=== PATIENT | female | born 1970 | race Caucasian/White ===

== ENCOUNTER 2020-10-02 07:24 | Outpatient (CLI) | payer OTHER ==
[2020-10-02 08:35] LABS: ALBUMIN 4.4 g/dL (3.2-5.5); ALBUMIN/GLOBULIN RATIO 1.3 (1.0-2.2); ALKALINE PHOSPHATASE 78 IU/L (42-121); ALT ALANINE AMINOTRANSFERASE 25 IU/L (10-60); AST ASPARTATE AMINOTRANSFERASE 20 IU/L (10-42); BILIRUBIN,TOTAL 0.9 mg/dL (0.2-1.0); BUN - BLOOD UREA NITROGEN 18 mg/dL (6-20); CALCIUM 9.2 mg/dL (8.5-10.3); CARBON DIOXIDE - CO2 25 mmol/L (21-32); CHLORIDE 105 mmol/L (101-111); CHOL/HDL RATIO 3.4 (<4.4); CHOLESTEROL 269 mg/dL; CREATININE 0.9 mg/dL (0.4-1.0); GLUCOSE 90 mg/dL (70-100); HDL CHOLESTEROL 78 mg/dL; LDL CHOLESTEROL,CALCULATED 171 mg/dL; LDL/HDL RATIO 2.2 (<4.4); SODIUM 140 mmol/L (135-145); TOTAL PROTEIN 7.8 g/dL (6.7-8.2); VLDL CHOLESTEROL 20 mg/dL
[2020-10-02 10:42] LABS: HEMOGLOBIN A1c% 5.4 % (4.27-6.07)
== END 2020-10-02 07:25 | disposition home or self-care (01) ==
LOC: LAB 07:24
PROVIDERS: ATTEND Obstetrics & Gynecology
DX: Z00.00 Encounter for general adult medical examination without abnormal findings (principal); E55.9 Vitamin D deficiency, unspecified; Z13.220 Encounter for screening for lipoid disorders; Z13.1 Encounter for screening for diabetes mellitus
CPT/HCPCS: 36415; 80053; 80061; 82306; 83036; 83721; 84443

== ENCOUNTER 2020-10-10 11:46 | Day surgery (SDC) | payer OTHER ==
[2020-10-10] MEDS ORDERED: LACTATED RINGERS 1,000 ML IV ONE ×2 (12:25→15:27)
[2020-10-10] MEDS ORDERED: MIDAZOLAM 2 MG/2 ML VIAL IVP ONE (14:45)
[2020-10-10] MEDS ORDERED: fentaNYL 250 MCG/5 ML VIAL IVP ONE (14:45)
[2020-10-10 15:49] VITALS: BP 113/89
== END 2020-10-10 11:47 | disposition home or self-care (01) ==
LOC: SDS 11:46
PROVIDERS: ATTEND Surgery
DX: Z12.11 Encounter for screening for malignant neoplasm of colon (principal)
CPT/HCPCS: 45378; J3010; J7120

== ENCOUNTER 2020-10-28 08:19 | Outpatient (CLI) | payer OTHER ==
--- NOTE | 2020-11-06 09:38 | Mammography Report ---
BILATERAL DIGITAL SCREENING MAMMOGRAM 3D/2D: 10/28/2020 CLINICAL: Routine screening. No prior exams were available for comparison. The tissue of both breasts is heterogeneously dense. T his may lower the sensitivity of mammography. There is an oval low density mass with an obscured and circumscribed margin in the left breast at 1 o 'clock middle depth. No other significant masses, calcifications, or other findings are seen in either breast. IMPRESSION: INCOMPLETE: NEEDS ADDITIONAL IMAGING EVALUATION The oval low density mass in the left breast is indeterminate. Mediolateral and spot compression vie ws as well as additional views with possible ultrasound are recommended. This exam was interpreted at Station ID: [id number]. NOTE: For mammograms, a report in lay terms will be sent to the patient. Approximately 15% of breast malignancies will not be visualized mammographically. In the management of a palpable breast mass, a negative mammogram must not discourage biopsy of a clinically suspicious lesion. Electronically Signed By: Kash Rosas M.D. ddp/penrad:11/05/2020 11:17:12 ACR BI-RADS Category 0: Incomplete 3340F PARENCHYMAL PATTERN: (D) - The breast(s) demonstrate(s) heterogeneously dense fibroglandular parenchy ma. BI-RADS CATEGORY: (0) - 0 Mammo and [place] [id number] Immediate follow-up LATERALITY: (B)
== END 2020-10-28 08:20 | disposition home or self-care (01) ==
LOC: DI.N 08:19
PROVIDERS: ATTEND Obstetrics & Gynecology
DX: Z12.31 Encounter for screening mammogram for malignant neoplasm of breast (principal); R92.8 Other abnormal and inconclusive findings on diagnostic imaging of breast
CPT/HCPCS: 77067

== ENCOUNTER 2020-12-26 08:00 | Outpatient (CLI) | payer OTHER ==
--- NOTE | 2021-01-23 08:54 | XRAY Report ---
PROCEDURE: Knee 4 View BILAT INDICATIONS: BILAT KNEE PAIN TECHNIQUE: 3 views of the left and right knee(s) were acquired. COMPARISON: None. FINDINGS: On the right, no fracture. Scattered subchondral sclerosis and spurring. Mild narrowing of the media l joint space. Edfun-mg-bnzigkeg joint effusion. On the left: Lateral tibial plateau fracture with depressed appearance. This finding technically age indeterminate and could be subacute or chronic and recommend clinical correlation. No priors availabl e. Scattered subchondral sclerosis and spurring. Small joint effusion. IMPRESSION: Left lateral tibial plateau fracture with slight depression and diastasis of the articul ar surface, although radiographically this is age indeterminate possibly subacute. Please correlate c linically to determine acuity, given the absence of any prior comparison studies. If clinically requi red, further evaluation with MRI or CT could be performed. Chronic background mild bilateral knee joint degeneration and joint effusions, right larger than left Reviewed by: Edson Leon MD on 01/23/2021 8:53 AM PST Approved by: Edson Leon MD on 01/23/2021 8:53 AM PST Station ID: [id number]
== END 2020-12-26 23:59 | disposition home or self-care (01) ==
LOC: DI.N 08:00
PROVIDERS: ATTEND Physician Assistant
DX: M25.562 Pain in left knee (principal); S82.145A Nondisplaced bicondylar fracture of left tibia, initial encounter for closed fracture; M17.0 Bilateral primary osteoarthritis of knee

== ENCOUNTER 2021-01-07 09:48 | Outpatient (CLI) | payer OTHER ==
--- NOTE | 2021-01-08 14:52 | Ultrasound Report ---
LIMITED ULTRASOUND OF LEFT BREAST: 01/07/2021 CLINICAL: Patient returns for additional imaging over a suspected mass in the left breast. Comparison is made to exams dated: 01/07/2021 mammogram, 10/28/2020 mammogram, 02/12/2014 mammogram, mammogram, and 02/04/2014 mammogram - [facility]. Color flow ultrasound of the left breast 1 o'clock region was performed. Walker scale images of the r eal-time examination were reviewed. There is a benign 1 cm x 0.9 cm x 0.3 cm oval simple cyst with a smooth internal wall in the left kadeem ast at 1 o'clock middle depth 7 cm from the nipple. This oval simple cyst displays posterior acousti c enhancement. This correlates with mammography findings. IMPRESSION: BENIGN There is no sonographic evidence of malignancy. The 1 cm x 0.9 cm x 0.3 cm oval simple cyst in the left breast is benign. A 1 year screening mammogram is recommended. This exam was interpreted at Station ID: [id number]. Electronically Signed By: Siddharth healy/annika:01/07/2021 10:51:10 Ultrasound BI-RADS: 2 Benign BI-RADS CATEGORY: (2) - 2 RECOMMENDATION: (ANNUAL) - Recommend routine annual screening mammography. [id number] 1 year screening LATERALITY: (B)
--- NOTE | 2021-01-08 14:54 | Mammography Report ---
UNILATERAL LEFT DIGITAL DIAGNOSTIC MAMMOGRAM 3D/2D: 01/07/2021 CLINICAL: Additional evaluation requested from prior study. Short term follow up for the left breast. Comparison is made to exams dated: 10/28/2020 mammogram, 02/12/2014 mammogram, 02/04/2014 mammogram, an d 02/05/2013 mammogram - [facility]. The tissue of left breast is heterogeneously d ense. This may lower the sensitivity of mammography. There is a 1 cm oval low density mass with an obscured and circumscribed margin in the left breast at 1 o'clock middle depth. No other significant masses or calcifications are seen in the breast. IMPRESSION: INCOMPLETE: NEEDS ADDITIONAL IMAGING EVALUATION The 1 cm oval low density mass in the left breast is indeterminate. An ultrasound is recommended. T argeted ultrasound is recommended for further evaluation, which will be performed immediately followi ng this exam. This exam was interpreted at Station ID: [id number]. NOTE: For mammograms, a report in lay terms will be sent to the patient. Approximately 15% of breast malignancies will not be visualized mammographically. In the management of a palpable breast mass, a negative mammogram must not discourage biopsy of a clinically suspicious lesion. Electronically Signed By: Siddharth healy/annika:01/07/2021 10:49:56 ACR BI-RADS Category 0: Incomplete 3340F PARENCHYMAL PATTERN: (D) - The breast(s) demonstrate(s) heterogeneously dense fibroglandular parmeghany geraldine. BI-RADS CATEGORY: (0) - 0 Ultrasound [id number] Immediate follow-up LATERALITY: (L)
== END 2021-01-07 09:49 | disposition home or self-care (01) ==
LOC: DI 09:48
PROVIDERS: ATTEND Obstetrics & Gynecology
DX: N60.02 Solitary cyst of left breast (principal)

== ENCOUNTER 2021-02-20 07:47 | Outpatient (CLI) | payer OTHER ==
--- NOTE | 2021-02-20 09:04 | CT Report ---
PROCEDURE: LOWER EXTREMITY WO - LT INDICATIONS: NONDISPLACED BICONDYLAR FRACTURE OF LT TIBIA TECHNIQUE: Noncontrast 3 mm axial sections acquired of the left knee, with coronal and sagittal reformats. COMPARISON: X-ray is, bilateral 4 views; 01/23/2021. FINDINGS: Image quality: Excellent. Bones: There is a comminuted lateral tibial plateau fracture with 4 mm central depression. The fract ures likely chronic given cortication along the fracture lucency. Wiqi-aq-lhaxwjbd osteoarthritic ch anges are present in the medial and lateral femorotibial compartment. Soft tissues: There is small knee joint effusion. Small Hicks's cyst is present. IMPRESSION: 1. Chronic lateral tibial plateau fracture with 4 mm central depression. 2. Moderate osteoarthritis. 3. Small knee joint effusion. 4. A small Hicks's cyst. Reviewed by: Rony Sharp MD on 02/20/2021 8:03 AM JORJE Approved by: Rony Sharp MD on 02/20/2021 8:03 AM AKDT Station ID: [id number]
== END 2021-02-20 07:48 | disposition home or self-care (01) ==
LOC: DI 07:47
PROVIDERS: ATTEND Physician Assistant
DX: S82.145A Nondisplaced bicondylar fracture of left tibia, initial encounter for closed fracture (principal); M17.12 Unilateral primary osteoarthritis, left knee; M25.462 Effusion, left knee; M71.22 Synovial cyst of popliteal space [Baker], left knee

== ENCOUNTER 2021-08-17 08:00 | Outpatient (CLI) | payer OTHER | END 2021-08-17 23:59 | disposition home or self-care (01) | LOC: LAB.N 08:00 | PROVIDERS: ATTEND Physician Assistant Medical | DX: M79.604 Pain in right leg (principal) | CPT/HCPCS: 36415; 85379 ==

== ENCOUNTER 2022-07-22 13:00 | Outpatient (CLI) | payer OTHER ==
--- NOTE | 2022-07-23 10:15 | Mammography Report ---
BILATERAL DIGITAL SCREENING MAMMOGRAM 3D/2D: 07/22/2022 CLINICAL: Routine screening. Comparison is made to exams dated: 01/07/2021 mammogram, 10/28/2020 mammogram, 02/12/2014 mammogram, mammogram, 02/05/2013 mammogram, and 12/23/2011 mammogram - [facility]. Both breasts are heterogeneously dense, which may obscure small masses (category c / 51-75% glandula r tissue). No significant masses, calcifications, or other findings are seen in either breast. There has been no significant interval change. IMPRESSION: NEGATIVE There is no mammographic evidence of malignancy. A 1 year screening mammogram is recommended. Based on the Tyrer Cuzick model (a risk assessment model) the patients lifetime risk is 14.1% and he r 10 year risk is 4.1%. According to the ACR, ACS, and NCCN guidelines, an annual breast MRI exam kelsi ng with mammogram is recommended if the patients lifetime risk is 20% or greater. This exam was interpreted at Station ID: [id number]. NOTE: For mammograms, a report in lay terms will be sent to the patient. Approximately 15% of breast malignancies will not be visualized mammographically. In the management of a palpable breast mass, a negative mammogram must not discourage biopsy of a clinically suspicious lesion. Electronically Signed By: Adrian rivera/annika:07/22/2022 13:42:38 ACR BI-RADS Category 1: Negative 3341F PARENCHYMAL PATTERN: (D) - The breast(s) demonstrate(s) heterogeneously dense fibroglandular carlos chandler. BI-RADS CATEGORY: (1) - 1 RECOMMENDATION: (ANNUAL) - Recommend routine annual screening mammography. [id number] 1 year screening LATERALITY: (B)
== END 2022-07-22 13:01 | disposition home or self-care (01) ==
LOC: DI 13:00
PROVIDERS: ATTEND Physician Assistant
DX: Z12.31 Encounter for screening mammogram for malignant neoplasm of breast (principal)

== ENCOUNTER 2023-09-28 12:47 | Outpatient (CLI) | payer OTHER ==
--- NOTE | 2023-09-29 09:17 | Mammography Report ---
BILATERAL DIGITAL SCREENING MAMMOGRAM 3D/2D: 09/28/2023 CLINICAL: Routine screening. Comparison is made to exams dated: 07/22/2022 mammogram, 01/07/2021 mammogram, 10/28/2020 mammogram, 01/20 mammogram, and 02/04/2014 mammogram - [facility]. Both breasts are heterogeneously dense, which may obscure small masses (category c / 51-75% glandular tissue). No significant masses, calcifications, or other findings are seen in either breast. There has been no significant interval change. IMPRESSION: NEGATIVE There is no mammographic evidence of malignancy. A 1 year screening mammogram is recommended. Based on the Tyrer Cuzick model (a risk assessment model) the patients lifetime risk is 14.0% and he r 10 year risk is 4.3%. According to the ACR, ACS, and NCCN guidelines, an annual breast MRI exam kelsi ng with mammogram is recommended if the patients lifetime risk is 20% or greater. This exam was interpreted at Station ID: [id number]. NOTE: For mammograms, a report in lay terms will be sent to the patient. Approximately 15% of breast malignancies will not be visualized mammographically. In the management of a palpable breast mass, a negative mammogram must not discourage biopsy of a clinically suspicious lesion. Electronically Signed By: Adrian rivera/annika:09/28/2023 15:40:16 letter sent: No_Letter ACR BI-RADS Category 1: Negative 3341F PARENCHYMAL PATTERN: (D) - The breast(s) demonstrate(s) heterogeneously dense fibroglandular carlos chandler. BI-RADS CATEGORY: (1) - 1 Mammogram [id number] 1 year screening LATERALITY: (B)
== END 2023-09-28 12:48 | disposition home or self-care (01) ==
LOC: DI 12:47
DX: Z12.31 Encounter for screening mammogram for malignant neoplasm of breast (principal); R92.333 Mammographic heterogeneous density, bilateral breasts